=== PATIENT | female | born 1975 | race African-American/Black ===

== ENCOUNTER → 2023-02-16 | Outpatient (REF) | payer OTHER ==
[~2023-02-16] MED LIST: MINERAL OIL/PETROLAT/GLYCERI 6OZ BTL ONE
== END ==
LOC: WCC 12:48
PROVIDERS: ATTEND Internal Medicine Infectious Disease
DX: I70.233 Atherosclerosis of native arteries of right leg with ulceration of ankle (principal); L97.318 Non-pressure chronic ulcer of right ankle with other specified severity; R60.0 Localized edema

== ENCOUNTER → 2023-02-24 | Outpatient (REF) | payer OTHER | LOC: RAD 11:37 | PROVIDERS: ATTEND Internal Medicine Infectious Disease | DX: I70.233 Atherosclerosis of native arteries of right leg with ulceration of ankle (principal); L97.318 Non-pressure chronic ulcer of right ankle with other specified severity | CPT/HCPCS: 93970 ==

== ENCOUNTER → 2023-08-10 | Outpatient (REF) | payer OTHER ==
[~2023-08-10] MED LIST changes: +LIDOCAINE VISC 2% SOLN 15 ML UDC ONE; -MINERAL OIL/PETROLAT/GLYCERI 6OZ BTL ONE
== END ==
LOC: WCC 11:00
PROVIDERS: ATTEND Internal Medicine Infectious Disease
DX: I70.238 Atherosclerosis of native arteries of right leg with ulceration of other part of lower leg (principal); L97.818 Non-pressure chronic ulcer of other part of right lower leg with other specified severity; R60.0 Localized edema

== ENCOUNTER → 2023-08-17 | Outpatient (REF) | payer OTHER | LOC: WCC 11:02 | PROVIDERS: ATTEND Internal Medicine Infectious Disease | DX: I70.238 Atherosclerosis of native arteries of right leg with ulceration of other part of lower leg (principal); L97.818 Non-pressure chronic ulcer of other part of right lower leg with other specified severity; R60.0 Localized edema ==

== ENCOUNTER → 2023-08-31 | Outpatient (REF) | payer OTHER ==
[~2023-08-31] MED LIST changes: +COLLAGENASE OINTMENT 30 GM TUBE ONE
== END ==
LOC: WCC 10:54
PROVIDERS: ATTEND Internal Medicine Infectious Disease
DX: I70.238 Atherosclerosis of native arteries of right leg with ulceration of other part of lower leg (principal); L97.818 Non-pressure chronic ulcer of other part of right lower leg with other specified severity; R60.0 Localized edema

== ENCOUNTER → 2023-11-09 | Outpatient (REF) | payer OTHER | LOC: WCC 10-09 08:00 | PROVIDERS: ATTEND Internal Medicine Infectious Disease | DX: I87.311 Chronic venous hypertension (idiopathic) with ulcer of right lower extremity (principal); L97.818 Non-pressure chronic ulcer of other part of right lower leg with other specified severity; B96.4 Proteus (mirabilis) (morganii) as the cause of diseases classified elsewhere; B96.5 Pseudomonas (aeruginosa) (mallei) (pseudomallei) as the cause of diseases classified elsewhere; B96.29 Other Escherichia coli [E. coli] as the cause of diseases classified elsewhere ==